=== PATIENT | female | born 1985 | race African-American/Black ===

== ENCOUNTER 2017-04-03 18:44 | Emergency (ER) | payer MEDICAID ==
[~2017-04-03] VITALS: Ht 170.2 cm; Wt 85.0 kg
[~2017-04-03 18:44] MED LIST: ASPI1TAB69 PO; DILA2TAB2 PO; IBUP-232 PO; PREN1TAB63
[2017-04-03 18:45] VITALS: BP 123/79; PULSE 76; RESP 20; TEMP 98.8; O2SAT 100
--- NOTE | 2017-04-03 18:52 | PD ---
Physical Exam Date Seen by Provider: Apr 03, 2017 Time Seen by Provider: 18:50 Data Data Last Documented VS Vital Signs Date Time Temp Pulse Resp B/P Pulse Ox O2 Delivery O2 Flow Rate FiO2 04/03/17 18:45 98.8 76 20 123/79 100 Room Air [facility] Supervised Visit with AZEEM: No Narrative Course 32 YO F with complaint of low back pain x 24 hours. No known injury. Denies dysuria. Vitals reviewed. Awaiting bed placement. Esha Ace Apr 03, 2017 18:52
--- NOTE | 2017-04-03 20:55 | PD ---
HPI Chief Complaint: Back/ Neck Pain or Injury Time Seen by Provider: 20:53 Travel History International Travel<30 days: No Contact w/Intl Traveler<30days: No Traveled to known affect area: No History of Present Illness HPI Patient is a 32-year-old female presenting to emergency evaluation of low back pain that started yesterday. Patient denies any injury or trauma. She states the pain is in her mid lower back and radiates to the sides. She reports her pain is 9 out of 10 and medications to alleviate the pain prior to arrival. She denies bladder or bowel incontinence, no saddle paresthesia, no weakness or numbness in her extremities. The pain does not radiate down either leg. She denies any history of back problems in the past. 7-month-old and a 2-year-old child at home that she cares for. PFSH Past Medical History Autoimmune Disease: No Cancer: No Cardiovascular Problems: No Diabetes: No Diminished Hearing: No Genitourinary: No Headaches: Yes Immune Disorder: No Musculoskeletal: No Neurologic: No Psychiatric: No Reproductive: No Respiratory: No Immunizations Current: Yes Thyroid Disease: Yes ?: Not LMP: 01 APR 2017 : 1 Past Surgical History Abdominal Surgery: No Cardiac Surgery: No Ear Surgery: No Endocrine Surgery: No Eye Surgery: No Genitourinary Surgery: No Gynecologic Surgery: Yes ( 07/17/14) Oral Surgery: No Thoracic Surgery: No Other Surgery: Yes ("I HAD A BIOPSY TO MY NECK AREA.") Social History Alcohol Use: No Tobacco Use: No Substance Use: No Allergies-Medications (Allergen,Severity, Reaction): Coded Allergies: Codeine (Verified Allergy, Severe, 04/03/17) Tylenol (Verified Allergy, Intermediate, 04/03/17) Reported Meds & Prescriptions Reported Meds & Active Scripts Active No Active Prescriptions or Reported Medications Review of Systems Except as stated in HPI: all other systems reviewed are Neg Musculoskeletal: Positive: Myalgias, Cramping Physical Exam Narrative GENERAL: Well-nourished, well-developed patient. SKIN: Focused skin assessment warm/dry. HEAD: Normocephalic. EYES: No scleral icterus. No injection or drainage. NECK: Supple, trachea midline. No JVD or lymphadenopathy. CARDIOVASCULAR: Regular rate and rhythm without murmurs, gallops, or rubs. RESPIRATORY: Breath sounds equal bilaterally. No accessory muscle use. GASTROINTESTINAL: Abdomen soft, non-tender, nondistended. MUSCULOSKELETAL: No cyanosis, or edema. Tenderness to palpation paraspinal musculature in the lumbar region. No spinal tenderness or step-off noted. 5/5 muscle strength in bilateral lower extremities. BACK: Nontender without obvious deformity. No CVA tenderness. Data Data Last Documented VS Vital Signs Date Time Temp Pulse Resp B/P Pulse Ox O2 Delivery O2 Flow Rate FiO2 04/03/17 20:34 16 04/03/17 18:45 98.8 76 123/79 100 Room Air Orders Ketorolac Inj (Toradol Inj) (04/03/17 21:00) Orphenadrine Inj (Norflex Inj) (04/03/17 21:00) Dexamethasone Inj (Decadron Inj) (04/03/17 21:00) MDM Medical Decision Making Medical Screen Exam Complete: Yes Emergency Medical Condition: Yes Interpretation(s) Vital Signs Date Time Temp Pulse Resp B/P Pulse Ox O2 Delivery O2 Flow Rate FiO2 04/03/17 20:34 16 04/03/17 18:45 98.8 76 20 123/79 100 Room Air Differential Diagnosis Sprain versus strain versus discogenic pain versus spasm Narrative Course Patient is a 29-year-old female presenting with 1 day of lower back pain with no preceding injury or trauma. Patient is neurovascularly intact. She is given Norflex, Toradol, dexamethasone in the emergency department. Abrasion was encouraged to apply warm moist heat to affected area, continue range of motion exercises, avoid exacerbating activities, avoid bed rest. She was advised to follow-up with her primary doctor, additionally she can return to emergency department for any new or worsening symptoms. Patient verbalized understanding of instructions. Patient stable for discharge. Diagnosis Primary Impression: Strain of lumbar paraspinal muscle Qualified Code: S39.012A - Strain of lumbar paraspinal muscle, initial encounter Additional Impression: Spasm of lumbar paraspinous muscle Referrals: [facility] Primary Care Physician Patient Instructions: General Instructions, Muscle Spasm (ED), Muscle Strain ( ED) Additional Instructions: Follow-up with your primary care doctor or at [facility] Apply warm moist heat to affected area, continue range of motion exercises, avoid exacerbating activities, avoid bed rest Medications as directed Return to emergency department for any new or worsening symptoms Med/Other Pt SpecificInfo: Prescription(s) given Scripts Cyclobenzaprine (Flexeril)10 Mg Tab10 Mg PO TID PRN (MUSCLE SPASM) 10 Days Ref 0 Prov:Myrna Ovalle 04/03/17 Ibuprofen 800 Mg [id number] Mg PO Q6HR PRN (PAIN) #40 TAB Ref 0 Prov:Myrna Ovalle 04/03/17 Disposition: 01 DISCHARGE HOME Condition: Stable Myrna Ovalle Apr 03, 2017 20:55
[2017-04-03] MEDS ORDERED: KETOROLAC TROMETHAMINE 60 MG/2 ML (IM) VIAL IM ONE (21:00)
[2017-04-03] MEDS ORDERED: DEXAMETHASONE SOD PHOS 20 MG/5 ML VIAL IM ONE (21:00)
[2017-04-03] MEDS ORDERED: ORPHENADRINE INJ 60 MG/2 ML AMP IM ONE (21:00)
[2017-04-03] MEDS ORDERED: CYCL1TAB29 PO (21:36)
[2017-04-03] MEDS ORDERED: IBUP800T23 PO (21:36)
== END 2017-04-03 21:53 | disposition home or self-care (01) ==
LOC: NEPD 18:44
DX: S39.012A Strain of muscle, fascia and tendon of lower back, initial encounter (principal); M62.830 Muscle spasm of back; X58.XXXA Exposure to other specified factors, initial encounter
CPT/HCPCS: 96372; 99284; J1100; J1885; J2360